=== PATIENT | female | born 1950 ===

== ENCOUNTER 2017-12-11 06:30 | Day surgery (SDC) | payer OTHER ==
[~2017-12-11 06:30] MED LIST: GABAPENTIN400 MG PO; HYZAAR 100-251 EACH PO; MULTIVITAMINS1 EAC9 PO; TRAMADOL HCL50 MG PO; ZOCOR20 MG PO
== END 2017-12-11 14:05 | disposition home or self-care (01) ==
LOC: CIR.AMB 06:30
DX: M75.121 Complete rotator cuff tear or rupture of right shoulder, not specified as traumatic (principal); S46.211A Strain of muscle, fascia and tendon of other parts of biceps, right arm, initial encounter; M75.21 Bicipital tendinitis, right shoulder; M19.011 Primary osteoarthritis, right shoulder